=== PATIENT | female | born 1970 | race Caucasian/White ===

== ENCOUNTER → 2019-04-27 | Outpatient (CLI) | payer BC ==
--- NOTE | 2019-04-27 08:45 | PCVCIMAG ---
EXAM: DUPLEX ULTRASOUND OF THE RIGHT GROIN INDICATION: Groin swelling and pain. FINDINGS: No pseudoaneurysm is present. The common femoral artery and vein are patent. No arteriovenous fistula is seen. There is a small 0.9 x 1.3 cm subcutaneous hematoma. IMPRESSION: Study is negative for pseudoaneurysm. LOC:[place] [address]
== END | disposition home or self-care (01) ==
LOC: PCVCIMAG 07:38
PROVIDERS: ATTEND Internal Medicine
DX: R10.31 Right lower quadrant pain (principal); E78.5 Hyperlipidemia, unspecified
CPT/HCPCS: 93926